=== PATIENT | male | born 1965 | race Caucasian/White ===

== ENCOUNTER 2019-10-10 01:12 | Day surgery (SDC) | payer BC, SELFPAY ==
[2019-10-08 09:09] VITALS: BMI 39.5
[2019-10-10 10:57] VITALS: BP 121/73; PULSE 58; RESP 20; TEMP 36.9; O2SAT 96
[2019-10-10] MEDS: LACTATED RINGERS 1,000 ML 150 ML IV CONT (11:09)
--- NOTE | 2019-10-10 12:05 | WPDANESEPPF ---
Anes - Initial Pre Proc Eval Procedure: Operation Date: 10/10/19 11:30 Proposed Procedures p Screening Colonoscopy - Kaiser Sims MD Date/Time: 10/10/19 12:05 Surgeon: Kaiser Sims MD Pre Op Diagnosis: Neoplasm Screening/ Personal Hx Colon Ca Patient Data Age: 54 Gender: M Height: 5 ft 8 in Weight: 119.5 kg Last Vital Signs Temp 36.9 C 10/10/19 10:57 Pulse 58 L 10/10/19 10:57 Resp 20 10/10/19 10:57 BP 121/73 10/10/19 10:57 Pulse Ox 96 10/10/19 10:57 Allergies Allergy/AdvReac Type Severity Reaction Status Date / Time adhesive tape AdvReac Unknown Redness of Verified 10/10/19 10:47 Skin bacitracin AdvReac Unknown EYE Verified 10/10/19 10:47 SWELLING Home Medications Medication Instructions Recorded Confirmed Type aspirin [Adult Low Dose Aspirin] 81 mg PO DAILY 06/17/19 10/10/19 History cetirizine [Zyrtec] 10 mg PO DAILY PRN 06/17/19 10/10/19 History hydrocodone-acetaminophen [Vicodin 3 tablet PO Q6H PRN 06/17/19 10/10/19 History HP] lisinopril 5 mg PO DAILY 06/17/19 10/10/19 History metoprolol succinate [Toprol XL] 25 mg PO QAM #30 tablet 06/18/19 10/10/19 Rx nitroglycerin [Nitrostat] 0.4 mg SUBLINGUAL DIRECTED PRN 06/18/19 10/10/19 Rx #25 tablet rosuvastatin 20 mg PO DAILY #30 tablet 06/18/19 10/10/19 Rx amlodipine 10 mg PO DAILY 10/08/19 10/10/19 History hydrochlorothiazide 25 mg PO DAILY 10/08/19 10/10/19 History Patient hx anesthesia problems: none Family hx anesthesia problems: none PMFSH Past Medical History Medical History Colon cancer Hypertension Kidney stone Pulmonary embolism 2007 Renal cell carcinoma Surgical History Surgical History History of colon resection 2006 History of partial nephrectomy January 2018 History of spinal fusion 2009 Family History Family History Father Acute myocardial infarction Social History Social History Smoking status: Never smoker Alcohol intake: current Substance use: never Additional occupation/education comments: Works as a [employer] Gender identity (if verbalized by the patient): Male Spiritual care concerns: No Agree to blood products: Yes Anes - Eval Final PreProcedure Day of Procedure 10/10/19 12:05 Patient weight: morbidly obese Heart: regular rate and rhythm Lungs: clear to auscultation Airway: Mallampati scale class II Neurological: alert and oriented Last oral intake: >/= 8 hours ASA classification: III Emergent: no Anesthetic plan: proceed Anesthesia type and monitoring: general GIVS and standard monitoring Informed Consent: The patient's anesthetic plan and its attendant risks and benefits were discussed with the patient/family/POA. Questions were solicited and answers provided to the satisfaction of the patient/family/POA.
--- NOTE | 2019-10-10 12:06 | P.HP_ITS ---
History of Present Illness History of Present Illness Consent: Risks, benefits, and alternatives have been discussed and questions answered. Patient agrees to proceed with procedure. Chief complaint: Neoplasm Screening/ Personal Hx Colon Ca Narrative: Ander Crump is a 54 year old W male With a history of sigmoid colon cancer diagnosed in 2006 and underwent a sigmoid resection. Patient did have chemotherapy was a T3 N0. Patient missed his last follow-up colonoscopy secondary other medical problems. [facility] Past Medical History Medical History Colon cancer Hypertension Kidney stone Pulmonary embolism 2008 Renal cell carcinoma Surgical History Surgical History History of colon resection 2006 History of partial nephrectomy January 2018 History of spinal fusion 2008 Family History Family History Father Acute myocardial infarction Social History Social History Smoking status: Never smoker Alcohol intake: current Substance use: never Additional occupation/education comments: Works as a [email or web address] Gender identity (if verbalized by the patient): Male Spiritual care concerns: No Agree to blood products: Yes Meds Home Medications and Allergies Home Medications Medication Instructions Recorded Confirmed Type aspirin [Adult Low Dose Aspirin] 81 mg PO DAILY 06/17/19 10/10/19 History cetirizine [Zyrtec] 10 mg PO DAILY PRN 06/17/19 10/10/19 History hydrocodone-acetaminophen [Vicodin 3 tablet PO Q6H PRN 06/17/19 10/10/19 History HP] lisinopril 5 mg PO DAILY 06/17/19 10/10/19 History metoprolol succinate [Toprol XL] 25 mg PO QAM #30 tablet 06/18/19 10/10/19 Rx nitroglycerin [Nitrostat] 0.4 mg SUBLINGUAL DIRECTED PRN 06/18/19 10/10/19 Rx #25 tablet rosuvastatin 20 mg PO DAILY #30 tablet 06/18/19 10/10/19 Rx amlodipine 10 mg PO DAILY 10/08/19 10/10/19 History hydrochlorothiazide 25 mg PO DAILY 10/08/19 10/10/19 History Allergies Allergy/AdvReac Type Severity Reaction Status Date / Time adhesive tape AdvReac Unknown Redness of Verified 10/10/19 10:47 Skin bacitracin AdvReac Unknown EYE Verified 10/10/19 10:47 SWELLING Vital Signs Vital Signs - 24 hr 10/10/19 10:57 Temperature 36.9 C Pulse Rate 58 L Respiratory Rate 20 Blood Pressure 121/73 Pulse Oximetry 96 Exam Const: Orientation/consciousness: patient oriented x3 Resp: Auscultation: clear to auscultation bilaterally Cardio: Rate: regular rate Rhythm: regular rhythm Heart sounds: no m urmurs GI: GI Palp: Yes Soft to palpation, No Tenderness to palpation present (GI), Yes No hepatosplenomegaly present and No Palpable mass present Auscultation: normal bowel sounds Neuro: General: patient oriented x3 and no focal motor deficits Extrem: General: no pedal edema Assessment and Plan Additional Plan screening colonoscopy secondary to a personal history of colon cancer
--- NOTE | 2019-10-10 12:56 | SUR.OPER ---
RESOLUTION CLIP PLACED X1 LOT [id number] EXP
[2019-10-10 12:58] VITALS: BP 115/60; PULSE 67; RESP 21; O2SAT 93
[2019-10-10 13:08] VITALS: BP 111/72; PULSE 61; RESP 14; O2SAT 97
[2019-10-10 13:18] VITALS: BP 109/72; PULSE 61; RESP 17; O2SAT 95
== END 2019-10-10 13:46 | disposition home or self-care (01) ==
PROVIDERS: PCP Internal Medicine; Visit Provider Internal Medicine Gastroenterology
PROC: 0DJD8ZZ Inspection of Lower Intestinal Tract, Via Natural or Artificial Opening Endoscopic (ICD-10-PCS; CPT 45378; principal; 2019-10-10 11:30)
DX: Z12.11 Encounter for screening for malignant neoplasm of colon (principal); D12.4 Benign neoplasm of descending colon; K64.1 Second degree hemorrhoids; K64.4 Residual hemorrhoidal skin tags; Z85.038 Personal history of other malignant neoplasm of large intestine; I10 Essential (primary) hypertension; Z85.528 Personal history of other malignant neoplasm of kidney; Z86.711 Personal history of pulmonary embolism; Z79.82 Long term (current) use of aspirin; Z90.49 Acquired absence of other specified parts of digestive tract; Z90.5 Acquired absence of kidney; Z98.1 Arthrodesis status; E66.01 Morbid (severe) obesity due to excess calories; Z68.41 Body mass index [BMI] 40.0-44.9, adult
CPT/HCPCS: 45385; 88305; J2001; J2704; J7120

== ENCOUNTER 2021-06-29 15:23 | Emergency (ER) | payer BC, SELFPAY ==
[2021-06-29 15:39] VITALS: BP 145/89; PULSE 89; RESP 16; TEMP 37.1; O2SAT 98
--- NOTE | 2021-06-29 17:22 | ED.URI ---
HPI - URI/Sore Throat General Chief Complaint: Upper Respiratory Infection Stated Complaint: sore throat Time Seen by Provider: 06/29/21 17:07 Source: patient and RN notes reviewed Mode of arrival: ambulatory Limitations: no limitations History of Present Illness HPI Narrative: Patient presents today complaining of 2-day history of sore throat and cough. Denies any additional symptoms to include fever, congestion, rhinorrhea, ear pain, headache. He has tried no medication for symptoms prior to arrival. He cannot currently take NSAIDs due to an impending back surgery on 13 July. MD elicited complaint: sore throat Related Data Home Medications Medication Instructions Recorded Confirmed aspirin [Adult Low Dose Aspirin] 81 mg PO DAILY 06/17/19 06/29/21 cetirizine [Zyrtec] 10 mg PO DAILY PRN 06/17/19 06/29/21 hydrocodone-acetaminophen [Vicodin 3 tablet PO Q6H PRN 06/17/19 06/29/21 HP] lisinopril 5 mg PO DAILY 06/17/19 06/29/21 amlodipine 10 mg PO DAILY 10/08/19 06/29/21 hydrochlorothiazide 25 mg PO DAILY 10/08/19 06/29/21 cyclobenzaprine 10 mg PO DAILY 06/29/21 06/29/21 ezetimibe 10 mg PO DAILY 06/29/21 06/29/21 Allergies Allergy/AdvReac Type Severity Reaction Status Date / Time adhesive tape AdvReac Unknown Redness of Verified 06/29/21 16:59 Skin bacitracin AdvReac Unknown EYE Verified 06/29/21 16:59 SWELLING Review of Systems Review of Systems: CONSTITUTIONAL: Denies body aches, fever, chills, or sweats. EYES: Denies visual changes, redness, or discharge. ENT: Denies rhinorrhea, congestion, or otalgia.+ Sore throat CARDIOVASCULAR: Denies chest pain, palpitations, or edema. RESPIRATORY: Denies dyspnea.+ Cough GASTROINTESTINAL: Denies abdominal pain, nausea, vomiting, or diarrhea. GENITOURINARY: Denies dysuria or hematuria. SKIN: Denies rash, itching, or wounds. MUSCULOSKELETAL: Denies back pain, joint pain, or myalgia. NEUROLOGIC: Denies headache, numbness, tingling, or weakness. PSYCH: Denies depression or anxiety. [facility] Past Medical History Medical History (Updated 06/29/21 @ 17:29 by Tanna Perez, [facility], ) Colon cancer Hypertension Kidney stone Pulmonary embolism 2007 Renal cell carcinoma Surgical History Surgical History History of colon resection 2006 History of partial nephrectomy January 2018 History of spinal fusion 2008 Family History Family History Father Acute myocardial infarction Social History Social History Smoking status: Never smoker Alcohol intake: current Alcohol use details: Rare. Less than 3 per year Substance use: never Additional occupation/education comments: Works as a [employer] Gender identity (if verbalized by the patient): Male Spiritual care concerns: No Agree to blood products: Yes Comments At time of signature, I have reviewed and agree with nursing past medical, surgical, social and family history unless otherwise noted. Please see nursing chart for further information. There is no relevant family history pertinent to the presenting complaint Exam Narrative: GENERAL: Well-appearing, well-nourished, and in no acute distress. HEAD: Normocephalic, atraumatic. EYES: EOMI. No redness or drainage. Conjunctivae normal. ENT: Mucous membranes pink and moist. Nares clear. No rhinorrhea. TMs normal bilaterally. Throat erythematous without edema or exudate. Uvula midline. NECK: Normal AROM. Supple. Right posterior cervical chain lymphadenopathy. CHEST: No respiratory distress. Clear to auscultation. HEART: Regular rate and rhythm. No murmur appreciated. Normal peripheral pulses. EXTREMITIES: Normal range of motion. No edema. SKIN: Warm, dry, no rash. Capillary refill normal. Normal skin turgor. NEURO: No focal deficits. Alert and oriented x
== END 2021-06-29 17:40 | disposition home or self-care (01) ==
PROVIDERS: Emergency Provider Nurse Practitioner; PCP Internal Medicine
DX: J02.8 Acute pharyngitis due to other specified organisms (principal); I10 Essential (primary) hypertension; Z86.711 Personal history of pulmonary embolism; Z85.038 Personal history of other malignant neoplasm of large intestine; Z85.528 Personal history of other malignant neoplasm of kidney
CPT/HCPCS: 87081; 87880; 99213; G0463

== ENCOUNTER 2021-09-29 11:59 | Emergency (ER) | payer BC, SELFPAY ==
--- NOTE | ~2021-09-29 | CT_ITS ---
EXAMINATION: CT abdomen pelvis wo con DATE: 09/29/2021 14:03 INDICATION: Right flank pain. Kidney stones. TECHNIQUE: Computed tomography (CT) of the abdomen and pelvis was performed without intravenous contr ast. Automated exposure control and iterative reconstruction technique were employed. The dose-length product was 844.44 mGy-cm. COMPARISON: CT abdomen 03/20/2007, chest CT 10/04/14 FINDINGS: The visualized portions of the lung bases demonstrate mild atelectasis. There are patchy gr ound glass opacities in right lower lobe. No pleural effusion. The heart size is normal. No pericardi al effusion. The liver, gallbladder, spleen, pancreas, and adrenal glands are normal. There is an 18 mm stone or cluster of stones in right kidney. There is mild right hydronephrosis and hydroureter. Th ere is a 4 mm stone at right ureterovesicular junction. There are 3 stones in left kidney measuring u p to 4 mm. There is a parenchymal calcification in left kidney. There is a hemorrhagic cyst in left k idney measuring 1.7 cm. Peripheral high density of the left kidney may be changes of partial nephrect perry. There is an anastomosis in the sigmoid colon. There are no dilated loops of bowel. The appendix is normal. There are two supraumbilical ventral hernias containing fat. There are changes of anterior and posterior fusion procedures at L5-S1. There is moderate lumbar spondylosis and mild thoracic spo ndylosis. IMPRESSION: 1. 4 mm stone at right ureterovesicular junction with mild right hydronephrosis and hydroureter. 2. Bilateral nonobstructing kidney stones. 3. Mild patchy ground glass opacities in right lung lower lobe suspicious for pneumonia such as COVID -19 pneumonia. Reviewed, dictated and finalized at location A. USION PROCESS OPERATOR IMPRESSION: 1. 4 mm stone at right ureterovesicular junction with mild right hydronephrosis and hydroureter. 2. Bilateral nonobstructing kidney stones. 3. Mild patchy ground glass opacities in right lung lower lobe suspicious for p neumonia such as COVID-19 pneumonia.
[2021-09-29 12:05] VITALS: BP 148/86; PULSE 78; RESP 16; TEMP 36.8; O2SAT 97
--- NOTE | 2021-09-29 13:53 | ED.MALEGU ---
HPI - Male Genitourinary General Chief complaint: Urogenital-Male <Renay Sherman PA-C - Last Filed: 09/29/21 15:17> Stated complaint: right flank <Renay Sherman PA-C - Last Filed: 09/29/21 15:17> Time Seen by Provider: 09/29/21 13:34 <Renay Sherman PA-C - Last Filed: 09/29/21 15:17> Source: patient <CAROLYN Bell Last Filed: 09/29/21 15:17> Mode of arrival: ambulatory <CAROLYN eBll Last Filed: 09/29/21 15:17> Limitations: no limitations <CAROLYN Bell Last Filed: 09/29/21 15:17> History of Present Illness HPI Narrative: This is a 56 year old male that presents to the ER for right flank pain present since yesterday. Reports he noted some blood in his urine. He has history of many kidney stones in the past. His urologist that he previously saw is retired. Denies fever, vomiting, or dysuria. <Renay Sherman PA-C - Last Filed: 09/29/21 15:17> Related Data Home medications: Home Medications Medication Instructions Recorded Confirmed aspirin [Adult Low Dose Aspirin] 81 mg PO DAILY 06/17/19 06/29/21 cetirizine [Zyrtec] 10 mg PO DAILY PRN 06/17/19 06/29/21 hydrocodone-acetaminophen [Vicodin 3 tablet PO Q6H PRN 06/17/19 06/29/21 HP] lisinopril 5 mg PO DAILY 06/17/19 06/29/21 amlodipine 10 mg PO DAILY 10/08/19 06/29/21 hydrochlorothiazide 25 mg PO DAILY 10/08/19 06/29/21 cyclobenzaprine 10 mg PO DAILY 06/29/21 06/29/21 ezetimibe 10 mg PO DAILY 06/29/21 06/29/21 <CAROLYN Bell Last Filed: 09/29/21 15:17> Allergies/Adverse reactions: Allergies Allergy/AdvReac Type Severity Reaction Status Date / Time adhesive tape AdvReac Unknown Redness of Verified 09/29/21 14:20 Skin bacitracin AdvReac Unknown EYE Verified 09/29/21 14:20 SWELLING <Renay Sherman PA-C - Last Filed: 09/29/21 15:17> Review of Systems Review of Systems: CONSTITUTIONAL: Denies fever GASTROINTESTINAL: Reports abdominal pain. Denies nausea, vomiting GENITOURINARY: Reports hematuria. Denies dysuria <Renay Sherman PA-C - Last Filed: 09/29/21 15:17> All systems reviewed & are unremarkable except as noted in HPI and below <Renay Sherman PA-C - Last Filed: 09/29/21 15:17> PMFSH Past Medical History Medical History: Medical History (Updated 09/29/21 @ 15:14 by Renay Sherman PA-C) Colon cancer Hypertension Kidney stone Pulmonary embolism 2007 Renal cell carcinoma <Renay Sherman PA-C - Last Filed: 09/29/21 15:17> Surgical History Surgical History: Surgical History History of colon resection 2006 History of partial nephrectomy January 2018 History of spinal fusion 2008 <Renay Sherman PA-C - Last Filed: 09/29/21 15:17> Family History Family History: Family History Father Acute myocardial infarction <Renay Sherman PA-C - Last Filed: 09/29/21 15:17> Social History Social History: Social History Smoking status: Never smoker Alcohol intake: current Alcohol use details: Rare. Less than 3 per year Substance use: never Additional occupation/education comments: Works as a [employer] Gender identity (if verbalized by the patient): Male Spiritual care concerns: No Agree to blood products: Yes <Renay Sherman PA-C - Last Filed: 09/29/21 15:17> Exam Narrative: GENERAL: Well-appearing, well-nourished, and in no acute distress. HEAD: Normocephalic, atraumatic. EYES: EOMI. CHEST: Clear to auscultation. No respiratory distress. No wheezes rales or rhonchi HEART: Regular rate and rhythm. No murmur heard. Normal peripheral pulses. ABDOMEN: Soft, nontender, nondistended, normal active bowel sounds. No CVA tenderness EXTREMITIES: Normal range of motion. No edema. SKIN: Warm, dry, no rash. NEURO: N
[2021-09-29 14:17] LABS: Basophils Percent Auto 0.3 % (0.2-1.2); Eosinophils Absolute Auto 0.2 K/mm3 (0-0.3); Eosinophils Percent Auto 2.4 % (0-4.4); Hematocrit 41.9 % (42.0-52.0); Hemoglobin 14.2 g/dL (14.0-18.0); Immature Granulocyte Absolute 0.04 K/mm3 (0.00-0.031); Immature Granulocyte Percent A 0.5 % (0-0.5); Lymphocytes Absolute Auto 1.39 K/mm3 (0.9-3.2); Lymphocytes Percent Auto 18.2 % (18.3-44.2); Mean Corpuscular HGB Conc 33.9 g/dl (32-36); Mean Corpuscular Hemoglobin 31.3 pg (26-34); Mean Corpuscular Volume 92.5 fl (80-100); Monocytes Absolute Auto 0.6 K/mm3 (0.1-0.6); Monocytes Percent Auto 7.7 % (2.6-8.5); Neutrophils Absolute Auto 5.4 K/mm3 (1.3-6.7); Neutrophils Percent Auto 70.9 % (45.5-73.1); Platelet Count Result 231 k/mm3 (150-375); Red Blood Count 4.53 M/mm3 (4.6-6.20); Red Cell Distribution Width 13.2 % (11.5-14.5); White Blood Count 7.6 K/mm3 (4.5-10.0)
[2021-09-29 14:24] LABS: Add Urine Microscopic? YES; Appearance Urine Clear (Clear); Bilirubin Urine Negative (Negative); Blood Urine 3+ (Negative); Color Urine Yellow (Yellow); Glucose Urine UA Negative (Negative); Ketones Urine Negative (Negative); Leukocyte Esterase Ur Negative LEU/UL (Negative); Mucus Urine Rare /lpf; Nitrate Urine Negative (Negative); Protein Urine Negative (Negative); RBC Urine 51-75 /hpf (0-2); Specific Grav Ur 1.014 (1.001-1.035); Squamous Epithelial Cell Urine Rare /hpf (Few); Urobilinogen Urine Negative mg/dL (<2.0)
[2021-09-29 14:33] LABS: Alanine Aminotransferase 36 U/L (4-50); Albumin Level 4.2 g/dL (3.5-5.1); Alkaline Phosphatase 80 U/L (38-126); Anion Gap 9 mmol/L (8-16); Aspartate Amino Transferase 32 U/L (17-59); Bilirubin,Total 0.5 mg/dL (0.2-1.3); Blood Urea Nitrogen 15 mg/dL (9-20); Calcium 9.3 mg/dL (8.4-10.2); Carbon Dioxide 23 mmol/L (22-30); Chloride 103 mmol/L (98-107); Estimated CRCL calculation 80 ml/min; Estimated Glomerular Filt Rate > 60; Glucose 114 mg/dL (65-110); Lipase 574 U/L (23-300); Potassium 3.8 mmol/L (3.4-5.0); Sodium 135 mmol/L (137-145)
[2021-09-29 16:00] VITALS: BP 130/85; PULSE 61; RESP 16
== END 2021-09-29 16:00 | disposition home or self-care (01) ==
PROVIDERS: Physician Assistant; Emergency Provider Emergency Medicine; PCP Internal Medicine
DX: N20.1 Calculus of ureter (principal)
CPT/HCPCS: 36415; 74176; 80053; 81001; 83690; 85025; 99284

== ENCOUNTER 2022-10-10 14:51 | Emergency (ER) | payer BC, SELFPAY ==
[2022-10-10] VITALS (39 sets, daily range): BP systolic 118–143; BP diastolic 61–94; PULSE 77–93; RESP 11–23; TEMP 36.6–36.9; O2SAT 91–97
--- NOTE | ~2022-10-10 | US_ITS ---
EXAMINATION:US venous doppler LE RT INDICATION:Right leg pain and swelling. Postop. TECHNIQUE: Multiple grayscale, color flow and Doppler images of the right lower extremity deep venous systems were obtained and reviewed. COMPARISON:No prior studies for comparison. FINDINGS: There is extensive deep venous thrombosis of the right femoral, popliteal, posterior tibial , peroneal and gastrocnemius veins. IMPRESSION: 1: Extensive deep venous thrombosis of the right lower extremity veins. Reviewed, dictated and finalized at location B. OPERATOR
--- NOTE | ~2022-10-10 | CT_ITS ---
EXAMINATION: CTA chest PE protocol DATE: 10/10/2022 17:47 INDICATION: extensive RLE DVT, hx PE TECHNIQUE: Computed tomography angiography (CTA) of the chest was performed with 100 mL Omnipaque-350 intravenous contrast timed to evaluate the pulmonary arteries. Coronal maximum intensity projection 3D-reconstructions were created by the technologist. The dose-length product (DLP) was 937.01 mGy-cm. Automated exposure control and iterative reconstruction technique were employed. COMPARISON: 10/04/2014. FINDINGS: Lung parenchyma and airways: Clear. Pleura: Unremarkable. Thoracic inlet, axillae and chest wall: Unremarkable. Thoracic aorta: Mild arch calcification. Mediastinum: Normal. Heart and pericardium: Normal. The RV/LV ratio is 1.0, however there is bowing of the interventricula r septum. Coronary artery calcifications: Mild. Upper abdomen: Dilated gallbladder. Ill-defined hyperenhancement in the left lower lobe. Bones: No acute osseous finding. Pulmonary arteries: Study quality: Adequate. Saddle embolus bridging the left and right main pulmonar y arteries. Multiple occlusive and nonocclusive segmental and subsegmental emboli present in all lobe s. IMPRESSION: Multiple pulmonary emboli including a saddle embolus in the main pulmonary arteries, large clot burde n, and evidence of early right heart strain. Gallbladder hydrops. Indeterminate left liver lobe lesio n, recommend nonemergent, outpatient MR the liver for further characterization. Results reported telephonically to Renay Sherman PA-C by Dr. Weinstein at 6:10 PM on 10/10/2022. Reviewed, dictated and finalized at location K. SURY ACCOUNTANT IMPRESSION: Multiple pulmonary emboli including a saddle embolus in the main pulmonary jillian sage, large clot burden, and evidence of early right heart strain. Gallbladder hydrops. Indeterminate left liver lobe lesion, recommend nonemergent, outpatien t MR the liver for further characterization. Results reported telephonically to Renay Sherman PA-C by Dr. Weinstein at 6:10 PM on 10/10/2022.
--- NOTE | 2022-10-10 15:17 | PC.NURSE ---
Pt in ultrasound.
--- NOTE | 2022-10-10 16:04 | ED.EXTPRO ---
HPI - Extremity Problem General Chief complaint: Extremity Problem,Nontraumatic <Renay Sherman PA-C - Last Filed: 10/10/22 20:57> Stated complaint: right leg swelling <Renay Sherman PA-C - Last Filed: 10/10/22 20:57> Time Seen by Provider: 10/10/22 15:18 <Renay Sherman PA-C - Last Filed: 10/10/22 20:57> Source: patient <CAROLYN Bell Last Filed: 10/10/22 20:57> Mode of arrival: ambulatory <CAROLYN Bell Last Filed: 10/10/22 20:57> Limitations: no limitations <CAROLYN Bell Last Filed: 10/10/22 20:57> History of Present Illness HPI Narrative: This is a 57-year-old male that presents to the emergency department for right lower extremity swelling noted since yesterday. Patient recently had a lumbar spine fusion about a month ago. He had a follow-up appointment with a nerve conduction study and the doctor noted that his leg was swollen and recommended he be seen in the ER to rule out a DVT. Patient denies any chest pain or shortness of breath. <Renay Sherman PA-C - Last Filed: 10/10/22 20:57> Related Data Home medications: Home Medications Medication Instructions Recorded Confirmed aspirin 81 mg tablet,delayed 81 mg PO DAILY 06/17/19 06/29/21 release (Adult Low Dose Aspirin) cetirizine 10 mg tablet (Zyrtec) 10 mg PO DAILY PRN Allergy Symptoms 06/17/19 06/29/21 hydrocodone 10 mg-acetaminophen 3 tablet PO Q6H PRN Pain 06/17/19 06/29/21 300 mg tablet (Vicodin HP) lisinopril 5 mg tablet 5 mg PO DAILY 06/17/19 06/29/21 amlodipine 10 mg tablet 10 mg PO DAILY 10/08/19 06/29/21 hydrochlorothiazide 25 mg tablet 25 mg PO DAILY 10/08/19 06/29/21 cyclobenzaprine 10 mg tablet 10 mg PO DAILY 06/29/21 06/29/21 ezetimibe 10 mg tablet 10 mg PO DAILY 06/29/21 06/29/21 <Renay Sherman PA-C - Last Filed: 10/10/22 20:57> Allergies/Adverse reactions: Allergies Allergy/AdvReac Type Severity Reaction Status Date / Time adhesive tape AdvReac Unknown Redness of Verified 10/10/22 15:39 Skin bacitracin AdvReac Unknown EYE Verified 10/10/22 15:39 SWELLING <Renay Sherman PA-C - Last Filed: 10/10/22 20:57> Review of Systems Review of Systems: CONSTITUTIONAL: Denies fever CARDIOVASCULAR: Reports edema. Denies chest pain RESPIRATORY: Denies dyspnea. SKIN: Denies rash MUSCULOSKELETAL: Reports back pain, joint pain, and myalgia. <Renay Sherman PA-C - Last Filed: 10/10/22 20:57> All systems reviewed & are unremarkable except as noted in HPI and below <Renay Sherman PA-C - Last Filed: 10/10/22 20:57> [facility] Past Medical History Medical History: Medical History (Updated 10/10/22 @ 18:38 by Renay Sherman PA-C) Colon cancer Hypertension Kidney stone Pulmonary embolism 2007 Renal cell carcinoma <Renay Sherman PA-C - Last Filed: 10/10/22 20:57> Surgical History Surgical History: Surgical History History of colon resection 2006 History of partial nephrectomy January 2018 History of spinal fusion 2008 <Renay Sherman PA-C - Last Filed: 10/10/22 20:57> Family History Family History: Family History Father Acute myocardial infarction <Renay Sherman PA-C - Last Filed: 10/10/22 20:57> Social History Social History: Social History Smoking status: Never smoker Alcohol intake: current Alcohol use details: Rare. Less than 3 per year Substance use: never Living arrangements: with family Occupation/Education: occupation Additional occupation/education comments: Works as a [employer] Gender identity (if verbalized by the patient): Male Spiritual care concerns: No Agree to blood products: Yes <Renay Sherman PA-C - Last Filed: 10/10/22 20:57> Exam Narrative: GENERAL: Well-appearing,
[2022-10-10 16:47] LABS: Basophils Percent Auto 0.5 % (0.2-1.2); Eosinophils Absolute Auto 0.2 K/mm3 (0-0.3); Eosinophils Percent Auto 3.6 % (0-4.4); Hematocrit 38.2 % (42.0-52.0); Hemoglobin 13.2 g/dL (14.0-18.0); Immature Granulocyte Absolute 0.03 K/mm3 (0.00-0.031); Immature Granulocyte Percent A 0.5 % (0-0.5); Lymphocytes Percent Auto 30.7 % (18.3-44.2); Mean Corpuscular HGB Conc 34.6 g/dl (32-36); Mean Corpuscular Hemoglobin 31.1 pg (26-34); Mean Corpuscular Volume 90.1 fl (80-100); Mean Platelet Volume 8.5 fl (7.4-10.4); Monocytes Absolute Auto 0.5 K/mm3 (0.1-0.6); Monocytes Percent Auto 8.4 % (2.6-8.5); Neutrophils Absolute Auto 3.5 K/mm3 (1.3-6.7); Neutrophils Percent Auto 56.3 % (45.5-73.1); Platelet Count Result 232 k/mm3 (150-375); Red Blood Count 4.24 M/mm3 (4.6-6.20); Red Cell Distribution Width 12.9 % (11.5-14.5); White Blood Count 6.2 K/mm3 (4.5-10.0)
[2022-10-10 17:05] LABS: Anion Gap 6 mmol/L (8-16); Blood Urea Nitrogen 17 mg/dL (9-20); Calcium 8.8 mg/dL (8.4-10.2); Carbon Dioxide 31 mmol/L (22-30); Chloride 98 mmol/L (98-107); Estimated CRCL calculation 81 ml/min; Estimated Glomerular Filt Rate > 60; Glucose 111 mg/dL (65-110); Potassium 3.1 mmol/L (3.4-5.0); Prothrombin Time 13.1 Seconds (11.1-14.7); Sodium 135 mmol/L (137-145)
[2022-10-10] MEDS: POTASSIUM CHLORIDE 20 MEQ PACKET (FOR LIQUID) 40 MEQ PO (17:18)
--- NOTE | 2022-10-10 18:31 | PC.NURSE ---
Spoke with pharmacy and MARISA Niño. Pharmacist Juan Francisco confirmed we will be giving a 7000 unit bolus based on weight. Juan Francisco to D/C the order for 9500 units.
[2022-10-10] MEDS: HEPARIN SODIUM 5,000 UNITS/ML VIAL 7000 UNITS IV PUSH (19:03)
[2022-10-10] MEDS: HEPARIN SOD/D5W 100 UNITS/ML 25,000 UNITS/250 ML BAG 15 UNITS IV CONT (19:03)
--- NOTE | 2022-10-10 19:08 | PC.NURSE ---
Pt started on heparin drip.
[2022-10-10] MEDS: ONDANSETRON INJ 4 MG/2 ML VIAL IV PUSH (20:22)
[2022-10-10] MEDS: MORPHINE SULFATE (*CRX) 4 MG/ML INJ IV PUSH (20:22)
--- NOTE | 2022-10-10 20:55 | ECG_ITS ---
Measurements Intervals [place] Rate: 88 P: 29 NM: 167 QRS: 3 QRSD: 103 T: 6 QT: 366 QTc: 444 Interpretive Statements SINUS RHYTHM COMPARED TO ECG 06/17/2019 10:04:03 SINUS RHYTHM NOW PRESENT Electronically Signed On 10-11-2022 11:34:42 COREMAKING SUPERVISOR by Candy Cortez M.D.
--- NOTE | 2022-10-10 21:36 | PC.NURSE ---
Spoke with Sebastian from [facility] Transfer team, gave update on patient. COVID/FLU swab requested. Will call Sebastian with results of lab work. No beds at this time. Call back number [phone]
[2022-10-10 22:28] LABS: Magnesium 1.8 mg/dL (1.6-2.3)
[2022-10-10 22:41] LABS: NT Pro B Type Natriuretic Pept 195 pg/mL (19.9-100); Troponin I < 0.012 ng/mL (0.000-0.034)
[2022-10-10 22:56] LABS: Influenza A QL RT-PCR Negative (Negative); Influenza B QL RT-PCR Negative (Negative); SARS-CoV-2 RNA PCR Negative
--- NOTE | 2022-10-10 23:01 | PC.NURSE ---
Spoke with Sebastian from [facility] Transfer center. Informed of negative COVID and flu results, as well as new lab results.
[2022-10-11] VITALS (11 sets, daily range): BP systolic 111–136; BP diastolic 65–83; PULSE 72–94; RESP 16–22; O2SAT 94–98
[2022-10-11 03:52] LABS: Partial Thromboplastin Time 55.8 SECONDS (22.3-36.8)
[2022-10-11] MEDS: HEPARIN SODIUM 5,000 UNITS/ML VIAL 3500 UNITS IV PUSH (04:08)
[2022-10-11] MEDS: HYDROcodone/acetaminophen (*CRX) 5-325 MG TABLET 1 TAB PO (04:16)
--- NOTE | 2022-10-11 06:40 | PC.NURSE ---
0558: [id number] Called [facility] for ALS transport to [facility]...ETA [id number] (#[id number])
[2022-10-11 07:52] LABS: Basophils Percent Auto 0.3 % (0.2-1.2); Eosinophils Absolute Auto 0.3 K/mm3 (0-0.3); Eosinophils Percent Auto 4.1 % (0-4.4); Hematocrit 35.8 % (42.0-52.0); Hemoglobin 12.3 g/dL (14.0-18.0); Immature Granulocyte Absolute 0.03 K/mm3 (0.00-0.031); Immature Granulocyte Percent A 0.5 % (0-0.5); Lymphocytes Percent Auto 31.5 % (18.3-44.2); Mean Corpuscular HGB Conc 34.4 g/dl (32-36); Mean Corpuscular Volume 90.2 fl (80-100); Mean Platelet Volume 8.4 fl (7.4-10.4); Monocytes Absolute Auto 0.6 K/mm3 (0.1-0.6); Monocytes Percent Auto 9.8 % (2.6-8.5); Neutrophils Absolute Auto 3.4 K/mm3 (1.3-6.7); Neutrophils Percent Auto 53.8 % (45.5-73.1); Platelet Count Result 205 k/mm3 (150-375); Red Blood Count 3.97 M/mm3 (4.6-6.20); Red Cell Distribution Width 12.8 % (11.5-14.5); White Blood Count 6.4 K/mm3 (4.5-10.0)
[2022-10-11 10:20] LABS: Partial Thromboplastin Time 69.5 SECONDS (22.3-36.8)
--- NOTE | 2022-10-11 10:35 | PC.NURSE ---
PTT result called to [facility].
== END 2022-10-11 10:08 | disposition short-term general hospital (02) ==
PROVIDERS: General Practice; Emergency Provider Physician Assistant; PCP Internal Medicine
DX: I26.94 Multiple subsegmental thrombotic pulmonary emboli without acute cor pulmonale (principal); I82.401 Acute embolism and thrombosis of unspecified deep veins of right lower extremity; K76.9 Liver disease, unspecified; Z20.822 Contact with and (suspected) exposure to COVID-19; I10 Essential (primary) hypertension; Z87.442 Personal history of urinary calculi; Z85.038 Personal history of other malignant neoplasm of large intestine
CPT/HCPCS: 36415; 71275; 80048; 83735; 83880; 84484; 85025; 85610; 85730; 87636; 93005; 93971; 96365; 96366; 96367; 96375; 99291; A9270; J0131; J1644; J2270; J2405; Q9967

== ENCOUNTER 2024-02-09 07:48 | Emergency (ER) | payer BC, SELFPAY ==
--- NOTE | ~2024-02-09 | CT_ITS ---
EXAMINATION: CT abdomen pelvis wo con DATE: 02/09/2024 09:31 INDICATION: Flank pain. Hematuria. TECHNIQUE: Computed tomography (CT) of the abdomen and pelvis was performed without intravenous contr ast. Automated exposure control and iterative reconstruction technique were employed. The dose-length product was 1514.29 mGy-cm. COMPARISON: CT abdomen and pelvis 09/29/2021 FINDINGS: The visualized portions of the lung bases are clear without pneumonia or pleural effusion. The heart size is normal. No pericardial effusion. The liver, gallbladder, spleen, pancreas, adrenal glands, and right kidney are normal. There are changes of partial left nephrectomy. There are 2 mm an d 4 mm stones in left kidney. There is a parenchymal calcification in left kidney. There is 19 mm sto ne in the bladder. The prostate is mildly enlarged. The appendix is normal. There are two supraumbili lucas ventral hernias containing fat. There are no pathologically enlarged lymph nodes. There is no guy e intraperitoneal fluid. There are changes of anterior and posterior fusion procedures from L4 to S1. There is moderate thoracic and lumbar spondylosis. IMPRESSION: 1. Nonobstructing left kidney stones. 2. Bladder stone. 3. Supraumbilical ventral hernias containing fat. Reviewed, dictated and finalized at location A.
[2024-02-09 07:53] VITALS: BP 151/76; PULSE 63; RESP 18; TEMP 36.4; O2SAT 97
[2024-02-09 08:19] LABS: Basophils Percent Auto 0.3 % (0.2-1.2); Eosinophils Absolute Auto 0.2 K/mm3 (0-0.3); Eosinophils Percent Auto 2.9 % (0-4.4); Hematocrit 44.3 % (42.0-52.0); Immature Granulocyte Absolute 0.02 K/mm3 (0.00-0.031); Immature Granulocyte Percent A 0.3 % (0-0.5); Lymphocytes Absolute Auto 1.72 K/mm3 (0.9-3.2); Lymphocytes Percent Auto 27.3 % (18.3-44.2); Mean Corpuscular HGB Conc 33.9 g/dl (32-36); Mean Corpuscular Hemoglobin 31.8 pg (26-34); Mean Corpuscular Volume 93.9 fl (80-100); Mean Platelet Volume 8.7 fl (7.4-10.4); Monocytes Absolute Auto 0.5 K/mm3 (0.1-0.6); Monocytes Percent Auto 7.1 % (2.6-8.5); Neutrophils Absolute Auto 3.9 K/mm3 (1.3-6.7); Neutrophils Percent Auto 62.1 % (45.5-73.1); Platelet Count Result 246 k/mm3 (150-375); Red Blood Count 4.72 M/mm3 (4.6-6.20); Red Cell Distribution Width 13.3 % (11.5-14.5); White Blood Count 6.3 K/mm3 (4.5-10.0)
[2024-02-09 08:31] LABS: Alanine Aminotransferase 34 U/L (6-50); Albumin Level 4.5 g/dL (3.5-5.1); Alkaline Phosphatase 76 U/L (38-126); Anion Gap 9 mmol/L (4-12); Aspartate Amino Transferase 34 U/L (17-59); Bilirubin,Total 0.5 mg/dL (0.2-1.3); Blood Urea Nitrogen 17 mg/dL (9-20); Carbon Dioxide 27 mmol/L (22-30); Chloride 104 mmol/L (98-107); Estimated CRCL calculation 69 ml/min; Estimated Glomerular Filt Rate 56; Glucose 112 mg/dL (65-110); Sodium 140 mmol/L (137-145)
[2024-02-09 08:55] LABS: Appearance Urine Clear (Clear); Bilirubin Urine Negative (Negative); Blood Urine 1+ (Negative); Color Urine Yellow (Yellow); Glucose Urine UA Negative (Negative); Ketones Urine Negative (Negative); Leukocyte Esterase Ur 1+ LEU/UL (Negative); Need Manual Microscopic Need Manual; Nitrate Urine Positive (Negative); Non Pathogenic Casts 0-2; Protein Urine Negative (Negative); Specific Grav Ur 1.021 (1.001-1.035); Squamous Epithelial Cell Urine None Seen /hpf (Few); Urobilinogen Urine 0.2 mg/dL (<2.0); WBC Urine 21-50 /hpf (0-3); pH Urine 5.5 (5.0-9.0)
[2024-02-09 09:04] LABS: Bacteria Urine Rare /hpf
[2024-02-09 09:06] LABS: Add Urine Microscopic? YES
--- NOTE | 2024-02-09 09:55 | ED.BACK ---
HPI - Back Pain/Injury General Chief Complaint: Back Pain/Injury Stated Complaint: lower back pain radiates to abd Time Seen by Provider: 02/09/24 09:09 History of Present Illness HPI Narrative: 59-year-old male present to the emergency department for evaluation of right flank pain. Patient does have a significant history of kidney stones and has passed approximately 54 kidney stones previously in a single year. Patient began having wall right flank pain that radiates around to his right groin and to his right hip. Patient also reports he has been working on the [employer] a lot and may have strained his hip. Related Data Home Medications Medication Instructions Recorded Confirmed aspirin 81 mg tablet,delayed 81 mg PO DAILY 06/17/19 06/29/21 release (Adult Low Dose Aspirin) cetirizine 10 mg tablet (Zyrtec) 10 mg PO DAILY PRN Allergy Symptoms 06/17/19 06/29/21 hydrocodone 10 mg-acetaminophen 3 tablet PO Q6H PRN Pain 06/17/19 06/29/21 300 mg tablet (Vicodin HP) lisinopril 5 mg tablet 5 mg PO DAILY 06/17/19 06/29/21 amlodipine 10 mg tablet 10 mg PO DAILY 10/08/19 06/29/21 hydrochlorothiazide 25 mg tablet 25 mg PO DAILY 10/08/19 06/29/21 cyclobenzaprine 10 mg tablet 10 mg PO DAILY 06/29/21 06/29/21 ezetimibe 10 mg tablet 10 mg PO DAILY 06/29/21 06/29/21 Allergies Allergy/AdvReac Type Severity Reaction Status Date / Time adhesive tape AdvReac Unknown Redness of Verified 02/09/24 07:53 Skin bacitracin AdvReac Unknown EYE Verified 02/09/24 07:53 SWELLING Review of Systems Review of Systems: All systems reviewed & are unremarkable except as noted in HPI and below PMFSH Past Medical History Medical History (Updated 02/09/24 @ 11:12 by Agustin Caban MD) Colon cancer Hypertension Kidney stone Pulmonary embolism 2007 Renal cell carcinoma Surgical History Surgical History History of colon resection 2006 History of partial nephrectomy January 2018 History of spinal fusion 2008 Family History Family History Father Acute myocardial infarction Social History Social History Smoking status: Never smoker Alcohol intake: current Alcohol use details: Rare. Less than 3 per year Substance use: never Living arrangements: with family Occupation/Education: occupation Additional occupation/education comments: Works as a [employer] Gender identity (if verbalized by the patient): Male Spiritual care concerns: No Agree to blood products: Yes Exam Narrative: APPEARANCE: Well appearing, no pain, no distress, well-nourished. HEAD: normocephalic, atraumatic. EYES: PERRLA/EOMI, conjunctivae clear. NOSE: Normal no drainage EARS:TMS clear with good light reflex. THROAT: Pharynx clear, no exudate. NECK: Supple. No adenopathy, no masses. RESPIRATORY: Airway patent, respirations nonlabored. Clear to auscultation bilaterally, no rales, rhonchi, wheezing. CARDIOVASCULAR: Regular rate and rhythm without murmurs rubs or gallops. ABDOMINAL: Soft, nontender, nondistended, normal bowel sounds MUSCULOSKELETAL: Right buttock tenderness to palpation NEURO: Alert. Cranial nerves II through XII intact. Grossly intact SKIN: Warm, dry. Normal Color Course Course Emergency Course: Patient was treated for both urinary tract infection and for sciatica. Patient was encouraged of close follow-up with Urology for his bladder stone. Vital Signs Vital signs: Vital Signs Temperature 97.5 F L 02/09/24 07:53 Pulse Rate 63 02/09/24 07:53 Respiratory Rate 18 02/09/24 07:53 Blood Pressure 151/76 H 02/09/24 07:53 Pulse Oximetry 97 02/09/24 07:53 Temperature 97.5 F L 02/09/24 07:53 Pulse Rate 65 02/09/24 11:34 Respiratory Rate 16 02/09/24 11:34 Blood Pressure 152/69 H 02/09/24 11:34 Pulse Oximetry 99
[2024-02-09] MEDS: HYDROmorphone HCL INJ (*CRX) 1 MG/ML SYR IV PUSH (10:01)
[2024-02-09] MEDS: HYDROcodone/acetaminophen (*CRX) 5-325 MG TABLET 1 TAB PO (11:00)
[2024-02-09] MEDS: CYCLOBENZAPRINE HCL 10 MG TABLET PO (11:00)
[2024-02-09 11:34] VITALS: BP 152/69; PULSE 65; RESP 16; O2SAT 99
== END 2024-02-09 11:40 | disposition home or self-care (01) ==
PROVIDERS: Emergency Provider Emergency Medicine; PCP Internal Medicine
DX: R10.9 Unspecified abdominal pain (principal); M54.41 Lumbago with sciatica, right side; N39.0 Urinary tract infection, site not specified; N21.0 Calculus in bladder; K43.9 Ventral hernia without obstruction or gangrene; Z85.038 Personal history of other malignant neoplasm of large intestine; I10 Essential (primary) hypertension; Z87.442 Personal history of urinary calculi; Z86.711 Personal history of pulmonary embolism; Z79.82 Long term (current) use of aspirin; Z85.528 Personal history of other malignant neoplasm of kidney
CPT/HCPCS: 36415; 74176; 80053; 81001; 85025; 87086; 87088; 96365; 96375; 99284; A9270; J0696; J1170

== ENCOUNTER 2025-06-24 13:16 | Outpatient (CLI) | payer BC, SELFPAY ==
--- NOTE | ~2025-06-24 | XR_ITS ---
Abdominal radiograph(s) INDICATION: Kidney stones COMPARISON: CT abdomen and pelvis 02/09/2024 TECHNIQUE: 2 view supine AP abdomen FINDINGS: Small stone left kidney. Lung bases clear. Scattered colonic stool. Small bowel loops not well seen. No evidence of organomegaly. No acute bony abnormality. Lower spinal orthopedic hardware and stimulator. IMPRESSION: 1. Small stone left kidney. Reviewed, dictated and finalized at location [facility] IMPRESSION: 1. Small stone left kidney.
--- OUTSIDE RECORDS SUMMARY | 2025-06-24 13:24 | XMS_ITS | Encounter Summary ---
Author Organization [facility] Address [address] [place] [id number] Care Team Providers Care Health Information Manager Name Role Phone Joya Bernal MD Unavailable [phone] Michael Wright MD Unavailable [phone] Faraz Castro MD Primary Care Provider [phone] Encounter Details Date Type Department Care Team (Late st Contact Info) Description 05/16/2024 Prep for Procedure [facility]-Ad[facility] [place], [place] [id number] Dorota Mobley MD [address] [facility] [address] [place] [address] Social History Tobacco Use Types Packs/Day Years Used Date Smoking Tobacco: Never Smokeless Tobacco: Never Alcohol Use Standard Drinks/Week Comments Not Currently 0 (1 standard drink = 0.6 oz pur e alcohol) Sex and Gender Information Value Date Recorded Sex Assigned at Not on file Legal Sex Male 1:42 PM CDT Gender Identity Not on file Sexual Orientation Not on file documented as of this encounter Functional Status * Calculated C-SSRS Risk Score (Lifetime/Recent) Answer Date of Assessment Author Status No Risk Indicated 05/16/2024 11:22 AM CDT Rojas Verdin RN Active * Butler Suicide Severity Rating Scale (Screener/Recent Self-Report) Question Answer Date of Assessment Author Status 1. Wish to be (Past 1 Month) No 05/16/2024 11:22 AM CDT Alice Verdin RN Active 2. Non-Specific Active Suicidal Thoughts (Past 1 Month) No 05/16/2024 11:22 AM CDT Alice Verdin RN Active 6. Suicidal Behavior (Lifetime) No 05/16/2024 11:22 AM CDT Alice Verdin RN Active documented as of this encounter Plan of Treatment Not on file documented as of this encounter Results * (ABNORMAL) URINE BACTERIA CULTURE (05/13/2024 11:15 AM CDT) SPEC DESCRIPTION URINE CLEAN CATCH 05/13/2024 11:09 AM CDT [facility] SPECIAL REQUESTS NO SPECIAL REQUEST 05/13/2024 11:09 AM CDT [facility] CULTURE RESULT 50,000-100, 000 COL/ML ENTEROCOCCU S SPECIES (A) 05/15/2024 8:45 AM CDT [facility] URINE SPECIMEN OBTAINED BY CLEAN CATCH PROCEDURE / Unknown 05/13/2024 11:15 AM CDT 05/13/2024 11:39 AM CDT Narrative Organism Antibiotic Method Susceptibility Enterococcus species AMPICILLIN COCO (VITEK) <=2: Sensitive Enterococcus species NITROFURANTOIN COCO (VITEK) <=16: Sensitive Enterococcus species GENT. SYNERGY SCREEN COCO (VITEK) Sensitive Enterococcus species PENICILLIN G COCO (VITEK) 2: Sensitive Dorota Mobley MD MICROBIOLOGY - GENERAL ORDERABLES Final Result [facility] [address] [place] [address], [place] [phone] * (ABNORMAL) URINALYSIS (05/13/2024 11:15 AM CDT) SPECIMEN TYPE URINE CLEAN CATCH 05/13/2024 11:09 AM CDT [facility] COLOR (U) LIGHT YELLOW 05/13/2024 12:06 PM CDT [facility] TRANSPARENCY CLEAR 05/13/2024 12:06 PM [facility] SPECIFIC GRAVITY (U) 1.018 1.001 - 1.030 05/13/2024 12:06 PM [facility] U PH 6.0 5.0 - 9.0 05/13/2024 12:06 PM [facility] LEUKOCYTES (U) 75(A) NEGATIVE 05/13/2024 12:06 PM T [facility] NITRITES NEGATIVE NEGATIVE 05/13/2024 12:06 PM [facility] PROTEIN RANDOM (U) NEGATIVE <30 MG/DL 05/13/2024 12:06 PM [facility] GLUCOSE (U) NORMAL NORMAL MG/DL 05/13/2024 12:06 PM [facility] KETONES MG/DL (U) NEGATIVE NEGATIVE MG/DL 05/13/2024 12:06 PM [facility] UROBILINOGEN NORMAL NORMAL MG/DL 05/13/2024 12:06 PM [facility] BILIRUBIN (U) NEGATIVE NEGATIVE MG/DL 05/13/2024 12:06 PM [facility] BLOOD (U) NEGATIVE NEGATIVE 05/13/2024 12:06 PM T [facility] MUCUS RARE /LPF 05/13/2024 12:06 PM [facility] WBC/HPF 13(H) <6 /HPF 05/13/2024 12:06 PM [facility] RBC/HPF 1 <6 /HPF 05/13/2024 12:06 PM [facility] URINE SPECIMEN OBTAINED BY CLEAN CATCH PROCEDURE / Unknown 05/13/2024 11:15 AM CDT us Dorota Mobley MD URINE ORDERABLES Final Result [facility] [address] [place] [address], [place] [phone] * ECG 12-Lead (05/10/2024 12:52 PM CDT) 05/10/2024 12:5 2 PM CDT Narrative [facility] - 05/11/2024 1:08 AM CDT [address] Test Date: 2024-05-10 Pat Name: ANDER ADDISON Department: 40 Room: Gender: Male Salon Assistant: ARI : 1965 Requested By: DOROTA MOBLEY Order Number: [id number] Reading MD: Adriane Han Measurements Intervals [place] Rate: 62 P: 38 TX: 163 QRS: 4 QRSD: 106 T: 7 QT: 421 QTc: 429 Interpretive Statements SINUS RHYTHM No previous ECG available for comparison Procedure Note Adriane Han MD - 05/11/[address] Test Date: 2024-05-10 Pat Name: ANDER ADDISON Department: 40 Room: Gender: Male Salon Assistant: CDNG : 1965 Requested By: DOROTA MOBLEY Order Number: [id number] Reading CARMEN Han Measurements Intervals [place] Rate: 62 P: 38 TX: 163 QRS: 4 QRSD: 106 T: 7 QT: 421 QTc: 429 Interpretive Statements SINUS RHYTHM No previous ECG available for comparison us Dorota Mobley MD ECG ORDERABLES Final R esult [facility] * XR CHEST PA+LAT (05/10/2024 12:51 PM CDT) Anatomical Region Laterality Modality Chest Radiographic Teresita ging 05/10/2024 12:4 8 PM CDT Impressions 05/10/2024 12:49 PM CDT IMPRESSION: Negative chest Ordered By: DOROTA MOBLEY Interpreted By: Dhiraj Oliva MD, 05/10/2024 12:48 PM Narrative 05/10/2024 12:49 PM CDT [place] [id number] 2 VIEWS OF THE CHEST Clinical history: Kidney stone Comparison: None 2 views of the chest demonstrate the cardiac silhouette to be normal in size and appearance. The pulmonary vessels appear normal. The Lungs are clear. No consolidations or effusions are seen. Procedure Note Dhiraj Oliva MD - 05/10/2024 [place] [address] 2 VIEWS OF THE CHEST Clinical history: Kidney stone Comparison: None 2 views of the chest demonstrate the cardiac silhouette to be normal insize and appearance. The pulmonary vessels appear normal. The Lungs areclear. No consolidations or effusions are seen. IMPRESSION: Negative chest Ordered By: DROOTA MOBLEY Interpreted By: hDiraj Oliva MD, 05/10/2024 12:48 PM us Dorota Mobley MD GENERAL IMAGING Final R esult * (ABNORMAL) BASIC METABOLIC PANEL (05/10/2024 12:17 PM CDT) Pathologist [facility] GLUCOSE 109(H) 70 - 99 MG/DL 05/10/2024 1:35 PM [facility] BUN 14 7 - 18 MG/DL 05/10/2024 1:35 PM [facility] CREATININE S/P/B 1.21 0.7 - 1.3 MG/DL 05/10/2024 1:35 PM T [facility] SODIUM S/P/B 139 136 - 145 MMOL/L 05/10/2024 1:35 PM [facility] POTASSIUM S/P/B 3.4(L) 3.5 - 5.1 MMOL/L 05/10/2024 1:35 PM [facility] CHLORIDE S/P/B 104 97 - 115 MMOL/L 05/10/2024 1:35 PM [facility] CO2 28.8 21 - 32 MMOL/L 05/10/2024 1:35 PM [facility] CALCIUM S/P/B 9.2 8.5 - 10.1 MG/DL 05/10/2024 1:35 PM [facility] ANION GAP 6.2 2 - 10 MMOL/L 05/10/2024 1:35 PM [facility] BUN CREATININE RATIO 11.6 6 - 26 05/10/2024 1:35 PM [facility] GFR ESTIMATE 69(L) >90 ML/MIN/1.7 3 M2 05/10/2024 1:35 PM [facility] Comment: NOTE: eGFR is not calculated for patients <18 years of age or gender unknown. This is an estimated GFR calculation using the new CKD EPI creatinine equation without race and so does not require a correction factor for race. This estimated GFR should not be used for calculating drug doses. 05/10/2024 12:1 7 PM CDT us Dorota Mobley MD LABORATORY Final R esult [facility] [address] [place] [address], [place] [phone] * (ABNORMAL) CBC W/DIFF AUTOMATED (05/10/2024 12:17 PM CDT) [facility] WBC 7.91 4.5 - 11.0 x10'3/uL 05/10/2024 1:16 PM CDT [facility] RBC 5.02 4.70 - 6.10 x10'6/uL 05/10/2024 1:16 PM CDT [facility] HGB 15.1 14.0 - 18.0 G/DL 05/10/2024 1:16 PM CDT [facility] HCT 44.9 43.0 - 54.0 % 05/10/2024 1:16 PM CDT [facility] MCV 89.4 80.0 - 94.0 FL 05/10/2024 1:16 PM CDT [facility] MCH 30.1 27.0 - 31.0 PG 05/10/2024 1:16 PM CDT [facility] MCHC 33.6 32.0 - 36.0 G/DL 05/10/2024 1:16 PM CDT [facility] RDW 12.4 11.5 - 14.5 % 05/10/2024 1:16 PM CDT [facility] PLT 355 130 - 400 x10'3/uL 05/10/2024 1:16 PM CDT [facility] MPV 8.2(L) 9.3 - 12.2 FL 05/10/2024 1:16 PM CDT [facility] DIFFERENTIAL TYPE AUTOMATED DIFFERENTIAL 05/10/2024 1:16 PM CDT [facility] NEUTROPHILS % 67.5 % 05/10/2024 1:16 PM CDT [facility] LYMPHOCYTES % 22.5 % 05/10/2024 1:16 PM CDT [facility] MONOCYTES % 6.6 % 05/10/2024 1:16 PM CDT [facility] EOSINOPHILS 2.1 % 05/10/2024 1:16 PM CDT [facility] BASOPHILS 0.4 % 05/10/2024 1:16 PM CDT [facility] IMMATURE GRANS % 0.9 % 05/10/20 1:16 PM CDT [facility] ABS. NEUTROPHILS 5.34 1.80 - 7.70 x10'3/uL 05/10/2024 1:16 PM CDT [facility] ABS. LYMPHOCYTES 1.78 1.00 - 4.80 x10'3/uL 05/10/2024 1:16 PM CDT [facility] ABS. MONOCYTES 0.52 0.30 - 0.82 x10'3/uL 05/10/2024 1:16 PM CDT [facility] ABS. EOSINOPHILS 0.17 0.04 - 0.54 x10'3/uL 05/10/2024 1:16 PM CDT [facility] ABS. BASOPHILS 0.03 0.01 - 0.08 x10'3/uL 05/10/2024 1:16 PM CDT [facility] ABS. IMMATURE GRANULOCYTES 0.07 0.00 - 0.49 x10'3/uL 05/10/2024 1:16 PM CDT [facility] 05/10/2024 12:1 7 PM CDT us Dorota Mobley MD LABORATORY Final R esult [facility] [address] [place] [address], [place] [phone] documented in this encounter Visit Diagnoses Diagnosis Bladder stone Other calculus in bladder Nephrolithiasis Calculus of kidney History of kidney cancer Personal history of malignant neoplasm of kidney Bladder stone- Primary Other calculus in bladder Nephrolithiasis Calculus of kidney History of kidney cancer Personal history of malignant neoplasm of kidney documented in this encounter Care Teams Health Information Manager Relationship Specialty Start Date End Date Faraz Castro MD [address] [place] [address] PCP - General 05/13/24 [place] [id number] [address] [facility] [address] [place] [address] INTERNAL MEDICINE 05/08/24 Michael Wright MD [address] [facility] [address] [place] [address] PULMONARY DISEASE 05/08/24 documented as of this encounter
--- OUTSIDE RECORDS SUMMARY | 2025-06-24 13:24 | XMS_ITS | Clinical Summary ---
Author Organization [facility] Address [facility] [place] [address] Care Team Providers Care Dike Supervisor Name Role Phone Faraz Castro MD Primary Care Provider [phone] Lee Vuong MD Unavailable [phone] Isma Mccrary MD Unavailable Michael Wright MD Unavailable [phone] Allergies Active Allergy Reactions Criticality Noted Date Comments Adhesive Swelling,Rash Medium 06/20/2024 SKIN GLUE Bacitracin Other (See comments) Medium 05/14/2013 Bacitracin-Polymyxin B Swelling Medium 01/09/2018 Latex Redness Low 01/09/2018 Medications cetirizine (ZyrTEC) 10 mg tabletIndicati ons:Chronic Idiopathic Urticaria Take 1 tablet (10 mg total) by mouth daily as needed Active hydroCHLOROthi azide (HYDRODIURIL) 25 mg tablet Take 1 tablet (25 mg total) by mouth daily 9 Active acetaminophen 500 mg capsuleIndicat ions:Pain Take 2 capsules (1,000 mg total) by mouth every 6 (six) hours 4 Active colchicine (COLCRYS) 0.6 mg tabletIndicati ons:acute gouty arthritis Take 1 tablet (0.6 mg total) by mouth 2 (two) times a day 20 tablet 4 Active ezetimibe (ZETIA) 10 mg tablet TAKE 1 TABLET DAILY 90 tablet 3 4 Active metoprolol XL (TOPROL-XL) 50 mg extended release tablet TAKE 1 TABLET NIGHTLY 90 tablet 3 5 Active lisinopriL (PRINIVIL,ZEST RIL) 5 mg tablet TAKE 1 TABLET DAILY 90 tablet 3 5 Active cephalexin (KEFLEX) 500 mg capsule Take 1 capsule (500 mg total) by mouth 3 (three) times a day 30 capsule 5 Active Xarelto 10 mg tabletIndicati ons:History of pulmonary embolism TAKE 1 TABLET DAILY 90 tablet 3 5 Active ALPRAZolam (XANAX) 0.5 mg tablet TAKE 1 TO 2 TABLETS AT BEDTIME NEEDED FOR INSOMNIA 60 tablet 5 Active amLODIPine (NORVASC) 10 mg tablet TAKE 1 TABLET DAILY 90 tablet 3 5 Active amLODIPine (NORVASC) 10 mg tablet TAKE 1 TABLET DAILY 30 tablet 11 4 025 Discontinued ALPRAZolam (XANAX) 0.5 mg tablet TAKE 1 TO 2 TABLETS AT BEDTIME NEEDED FOR INSOMNIA 60 tablet 5 025 Discontinued methylPREDNISo lone (MEDROL DOSEPACK) 4 mg DosepackIndica tions:gout flare up Take as directed on package. 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 Tolerating prophylactic dose of DOAC well Recs: 1) Continue DOAC - xarelto 10 mg a day 2) Precautions with DOAC discussed 3) Stay as active as able 4) Stay uptodate with health maintenance/vaccinations Assessment & Plan (03/02/2023 10:23 AM CDT): 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 10/11/2022 Assessment & Plan (07/31/2024 3:52 PM DIE OUT WORKER): stable History of pulmonary embolism 10/11/2022 Assessment & Plan (02/05/2025 3:48 PM CDT): Continue xarelto History of colon cancer 10/11/2022 Liver lesion, left lobe 10/11/2022 Right leg DVT 10/11/2022 Lumbar herniated disc 09/07/2022 Assessment & Plan (02/05/2025 3:48 PM CDT): stable Hyperlipidemia 10/04/2021 Assessment & Plan (02/05/2025 3:48 PM CDT): stable Assessment & Plan (10/29/2024 3:40 PM CDT): stable Assessment & Plan (07/31/2024 3:52 PM DIE OUT WORKER): stable Assessment & Plan (10/04/2021 10:14 AM DIE OUT WORKER): Will add Vascepa to Zetia for improved control of TRG's Did not tolerate statin previously Diet and activity Nephrolithiasis 10/04/2021 Assessment & Plan (10/04/2021 10:14 AM DIE OUT WORKER): Uro referral Prostate cancer screening 10/04/2021 Assessment & Plan (10/29/2024 3:40 PM CDT): stable Assessment & Plan (10/04/2021 10:15 AM DIE OUT WORKER): Labs Essential hypertension 10/04/2021 Assessment & Plan (10/29/2024 3:40 PM CDT): Bp at target, continue medication for target directed therapy Assessment & Plan (10/04/2021 10:16 AM DIE OUT WORKER): At goal Continue lisinopril, amlodipine, metoprolol Follows with Cardiology ASCVD (arteriosclerotic cardiovascular disease) 10/04/2021 Personal history of renal cell cancer 03/14/2018 Overview (10/04/2021): S/P partial L nephrectomy in 2018 Resolved Problems Problem Noted Date Diagnosed Date Resolved Date History of IL (myocardial infarction) 10/04/2021 10/11/2022 Left renal mass 01/25/2018 10/04/2021 Encounters Date Type Department Care Team Description 06/19/2025 10:15 AM DIE OUT WORKER Office Visit [facility] [address] [facility] [address] [place] [address] Michael Wright MD PTE (pulmonary thromboembolism) (Primary Dx) 06/12/2025 Telephone [facility] [address] [place] [address] [place] [id number] Faraz Castro MD Gout 03/31/2025 Telephone [facility] [facility] [address] [place] [address] Faraz Castro MD Gout from Last 3 Months Immunizations Immunization Administration Dates Next Due Influenza, Quadrivalent, Brittany l Culture-based MDCK, Preservative Free, Antibiotic Free, Intramuscular 06/23/2017 Influenza, Quadrivalent, Spl it, Preservative Free, Intramuscular 05/27/2015 Influenza, Trivalent, Preservative Free, Intramu scular 08/18/2016 Tdap 03/12/2013 Surgical History Surgery Date Site/Laterality Comments BACK SURGERY Back Surgery - (Added by TW Conv) COLON SURGERY LAPAROSCOPIC COLON RESECTION 08/14/2006 - 08/13/2007 LITHOTRIPSY 08/14/2015 - 08/13/2016 INSERT VENA CAVA FILTER 08/14/2008 - 08/13/2009 IVC FILTER RETRIEVAL 08/14/2008 - 08/13/2009 INSERT VENA CAVA FILTER 03/04/2024 N/A PARTIAL NEPHRECTOMY Left REMOVE VENA CAVA FILTER 06/19/2024 N/A Medical History Medical History Date Comments Personal history of other di seases of the circulatory system History of hypertension - (A dded by TW Conv) History of chemotherapy 09/2007 for colo n cncer Colon cancer (HCC) 2006 Renal cell cancer (HCC) 2017 Heart murmur childhood Pulmonary embolus (HCC) felt to be secondary to chemo-2008 Kidney stone Family History Medical History Relation Name Comments Lung cancer Father Family history of lung cancer - (Added by TW Conv) Heart attack Mother Family history of myocardial infarction - (Added by TW Conv) Clotting disorder Neg Hx Relation Name Status Comments Father Mother Social History Tobacco Use Types Packs/Day Years Used Date Smoking Tobacco: Never Smokeless Tobacco: Never Tobacco Cessation:Counseling Given: Not Answered Alcohol Use Standard Drinks/Week Comments Defer 0 (1 standard drink = 0.6 oz pur e alcohol) very rare [facility] Utilities Answer Date Recorded In the past 12 months has [employer], gas, oil, or water [email or web address] threatened to shut off services in your home? No 03/07/2024 Social Connection and Isolation Panel Answer Date Recorded In a typical week, how many times do you talk on the phone with family, friends, or neighbors? More than three times a week 03/07/2024 How often do you get togethe r with friends or relatives? More than three times a week 03/07/2024 How often do you attend chur ch or evangelical services? Never 03/07/2024 Do you belong to any clubs o r organizations such as sabianism groups, unions, fraternal or athletic groups, or school groups? Yes 03/07/2024 How often do you attend meet ings of the clubs or organizations you belong to? More than 4 times per year 03/07/2024 Are you , , di vorced, , never , or living with a partner? 03/07/2024 AUDIT-C Answer Date Recorded Q1: How often do you have a drink containing alcohol? Never 03/06/2024 Q2: How many drinks containi ng alcohol do you have on a typical day when you are drinking? Patient does not drink Q3: How often do you have si x or more drinks on one occasion? Never 03/06/2024 Overall Financial Resource Strain (CARDIA) Answe r Date Recorded How hard is it for you to pa y for the very basics like food, housing, medical care, and heating? Not very hard 03/07/2024 Hunger Vital Sign Answer Date Recorded Within the past 12 months, y ou worried that your food would run out before you got the money to buy more. Never true 03/07/20 24 Within the past 12 months, t he food you bought just didn't last and you didn't have money to get more. Never true 03/07/2024 PRAPARE - Transportation Answer Date Re corded In the past 12 months, has l ack of transportation kept you from medical appointments or from getting medications? No 02/12 In the past 12 months, has l ack of transportation kept you from meetings, work, or from getting things needed for daily living? No 03/07/2024 Housing Stability Vital Sign Answer Baron e Recorded In the last 12 months, was t here a time when you were not able to pay the mortgage or rent on time? No 03/07/2024 In the past 12 months, how m any times have you moved where you were living? 1 03/07/2024 At any time in the past 12 m [facility], were you homeless or living in a usp (including now)? No 03/07/2024 Personal Safety Answer Date Recorded Have you ever been in or are you currently in a harmful physical or emotional relationship or is someone making you feel afraid or unsafe? Denies 06/19/2024 Sex and Gender Information Value Date Recorded Sex Assigned at Not on file Legal Sex Male 7:02 PM DIE OUT WORKER Gender Identity Male 07/27/2023 1:07 PM DIE OUT WORKER Sexual Orientation Not on file Last Filed Vital Signs Vital Sign Reading Time Taken Comments Blood Pressure 122/77 02/05/2025 3:23 PM CDT Pulse 66 02/05/2025 3:23 PM CDT Temperature 36.5 C (97.7 F) 06/19/2024 9:45 AM DIE OUT WORKER Respiratory Rate 18 06/19/2024 10:47 AM DIE OUT WORKER Oxygen Saturation 95% 02/05/2025 3:23 PM CDT Inhaled Oxygen Concentration - - Weight 126.6 kg (279 lb) 02/05/2025 3:23 PM CDT Height 172.7 cm (5' 8) 02/05/2025 3:23 PM CDT Body Mass Index 42.42 02/05/2025 3:23 PM CDT Plan of Treatment Scheduled Procedures Name Priority Associated Diagnoses Date/Ti me COLONOSCOPY Open Access Encounter for screening colonoscopy Health Maintenance Due Date Last Done Comments Colon Cancer Screening-Colonoscopy 1965 Depression Screening 1965 Hepatitis C Screening 1965 Hepatitis B Screening 01/26/1982 Regular Well Visit/Exam 18-64 01/26/1982 Pneumococcal vaccine <65 (1 of 2 - PCV) 01/26/1983 Zoster Vaccine (1 of 2) 01/26/2014 DTaP/Tdap/Td Vaccine (2 - Td or Tdap) 03/12/2023 Prostate Cancer Screening-PSA 10/04/2023 10/04/2021 Influenza Vaccine (#1) 2025 7, 08/18/2016, 05/27/2015 Medical Devices Implanted Type Area Corporate Travel Counselor Device Identifier Shelf Expiration Date Model / Serial / Lot [employer] Inc Celect Navalign Delivery Uniset Filter Embolization [place] [id number] - S0 - [id number] Implanted:Qty: 1 on 10/11/2022 by Isma Mccrary MD at [facility] IVC Filter N/A: Inferior Vena Cava [employer] Inc 09/02/2025 [id number] / 0 / [id number] Bell V[employer] Device Clsr Perclose Prostyle Sut-Mediatd Closure-Repair Sys [id number] - S0 - [id number] Implanted:Qty: 1 on 10/11/2022 by Isma Mccrary MD at [facility] Vascular Closure Device Right: Femoral Vein [employer] 07/13/2024 [id number] / 0 / [id number] [place] Peripheral Vascular [place] Jugular Venal Cava Filter [id number] - [id number] Implanted:Qty: 1 on 03/04/2024 at [facility] Peripheral Vascular 01/11/2027 [id number] / / [id number] Orthofix Spinal Implants Firebird 5.5mm 100mm Anodize Straight Abraham Spinal Titanium - [id number] Implanted:Qty: 2 on 03/06/2024 by Lee Vuong MD at [facility] N/A: Spine Lumbar Orthofix Spinal Implants / / [employer] Inc Osteogen Spf 60fr Implantable Fusion Spine Mini Stimulator Bone 10-1335m - [id number] - [id number] Implanted:Qty: 1 on 03/06/2024 by Lee Vuong MD at [facility] N/A: Spine Lumbar [employer] Inc [id number] 06/14/2024 10-1335M / [id number] / New Age Medical Graft Bone Magnetos 10cc 1-2mm Granules In Moldable Putty 703-038-[id number] - [id number] Implanted:Qty: 1 on 03/06/2024 by Lee Vuong MD at [facility] N/A: Spine Lumbar [employer] [id number] 01/13/2028 [id number] / / [id number] Orthofix Spinal Implants Screw Spinal Set Pedicle Solid Jolynn 1cc - [id number] Implanted:Qty: 8 on 03/06/2024 by Lee Vuong MD at [facility] N/A: Back Orthofix Spinal Implants / / Orthofix Spinal Implants Screw Spinal Pedicle Multiaxial Top Loading Self Tapping Threaded Solid Firebird Titanium 36-2100 - [id number] Implanted:Qty: 8 on 03/06/2024 by Lee Vuong MD at [facility] N/A: Back Orthofix Spinal Implants [id number] / / Orthofix Spinal Implants Screw Bone 7.5mm 50mm Janus Spine Cortex Cannltd St Self 36-3750 - [id number] Implanted:Qty: 4 on 03/06/2024 by Lee Vuong MD at [facility] N/A: Spine Lumbar Orthofix Spinal Implants [id number] / / Orthofix Spinal Implants Janus 6.5mm 45mm Cannulated Self Tap Self Drill Modular Spine 36-3645 - [id number] Implanted:Qty: 2 on 03/06/2024 by Lee Vuong MD at [facility] N/A: Spine Lumbar Orthofix Spinal Implants [id number] / / Orthofix Spinal Implants Screw Bone 6.5mm 50mm Janus Spine Cortex Cannltd St Self 36-3650 - [id number] Implanted:Qty: 2 on 03/06/2024 by Lee Vuong MD at [facility] N/A: Spine Lumbar Orthofix Spinal Implants [id number] / / Procedures Procedure Name Priority Date/Time Associated Diagnosis Comments PSA SCREEN Routine 10/04/2021 10:26 AM DIE OUT WORKER Prostate cancer screening from Last 3 Months or Most Recently Relevant to Health Maintenance Results * PSA screen (10/04/2021 10:26 AM DIE OUT WORKER) PSA 3.7 0.0 - 4.0 ng/mL [facility] - 01 Comment: Taylor ECLIA methodology. According to the [place] [employer], Serum PSA should decrease and remain at undetectable levels after radical prostatectomy. The AUA defines biochemical recurrence as an initial PSA value 0.2 ng/mL or greater followed by a subsequent confirmatory PSA value 0.2 ng/mL or greater. Values obtained with different assay methods or kits cannot be used interchangeably. Results cannot be interpreted as absolute evidence of the presence or absence of malignant disease. Blood specimen (specimen) 10/04/2021 10:26 AM DIE OUT WORKER 10/04/2021 Narrative [facility] - 10/05/2021 8:14 AM DIE OUT WORKER Performed at: 01 - [facility] [id number] Carpentry Supervisor: Omar Loera PhD, Phone: [phone] us Clair Lopez CUTTING ROOM SUPERVISOR LAB BLOOD ORDERABLES Fin al Result [facility] - 01 from Last 3 Months or Most Recently Relevant to Health Maintenance Insurance [employer] OOS [employer] [facility] Advance Directives For more information, please contact: [phone] * Full Code (Latest Code Status on File) Date Activated Date Inactivated Comments 03/06/2024 5:24 PM 03/08/2024 7:31 PM * Full Code Date Activated Date Inactivated Comments 10/11/2022 1:44 PM 10/14/2022 5:36 PM * Full Code Date Activated Date Inactivated Comments 09/07/2022 10:41 AM 09/08/2022 6:38 PM * Full Code Date Activated Date Inactivated Comments 01/24/2018 9:16 PM 01/25/2018 11:01 PM Care Teams Dike Supervisor Relationship Specialty Start Date End Date Faraz Castro MD PCP - General Internal Medicine 02/27/18 Lee Vuong MD Consulting Physician Orthopedic Surgery 09/08/22 Isma Mccrary MD [address] [place] [address] Consulting Physician Cardiovascular Disease 10/14/22 Michael Wright MD [address] [place], [place] [id number] Consulting Physician Pulmonary Disease 10/14/22
--- OUTSIDE RECORDS SUMMARY | 2025-06-24 13:24 | XMS_ITS | Clinical Summary ---
Author Organization [facility] Address [facility] [place] [address] Care Team Providers Care Grain Combiner Name Role Phone Joya Bernal MD Unavailable [phone] Michael Wright MD Unavailable [phone] Faraz Castro MD Primary Care Provider [phone] Allergies Active Allergy Reactions Criticality Noted Date Comments Bacitracin Swelling,Other (see comment) Medium 05/14/2013 Around eye Bacitracin-Polymyxin B Swelling Medium 01/09/2018 Latex Rash,Redness Low 01/09/2018 Latex tape Tape Rash Low 05/08/2024 Paper tape okay Recent surgery where dermabond caused rash as well Medications ALPRAZolam (XANAX) 0.25 MG tablet Take 1 tablet (0.25 mg total) by mouth 3 (three) times daily as needed for Anxiety. 02/12/2024 Active diazePAM (VALIUM) 5 MG tablet Take 1 tablet (5 mg total) by mouth every 6 (six) hours as needed for Anxiety. 03/08/2024 Active HYDROcodone-oscar taminophen (NORCO) 5-325 MG tablet Take 1-2 tablets by mouth every 6 (six) hours as needed for Pain. 02/29/2024 Active ezetimibe (ZETIA) 10 MG tablet Take 1 tablet (10 mg total) by mouth daily. Active metoprolol succinate ER (TOPROL-XL) 50 MG 24 hr tablet Take by mouth daily. Active lisinopril (PRINIVIL) 5 MG tablet Take 1 tablet (5 mg total) by mouth daily. Active amLODIPine (NORVASC) 10 MG tablet Take 1 tablet (10 mg total) by mouth daily. Active rivaroxaban (XARELTO) 20 MG Tab tablet Take 1 tablet (20 mg total) by mouth daily with supper. Take with food Active cetirizine (ZYRTEC) 10 MG tablet Take 1 tablet (10 mg total) by mouth daily. Active nitrofurantoin (MACRODANTIN) 100 MG capsule Take 1 capsule (100 mg total) by mouth 2 (two) times a day. 05/15/2024 Active hydroCHLOROthia zide (HYDRODIURIL) 25 MG tablet Take 1 tablet (25 mg total) by mouth every morning. 03/10/2024 Active Active Problems No known active problems Social History Tobacco Use Types Packs/Day Years Used Date Smoking Tobacco: Never Smokeless Tobacco: Never Tobacco Cessation:Counseling Given: Not Answered Alcohol Use Standard Drinks/Week Comments Not Currently 0 (1 standard drink = 0.6 oz pur e alcohol) Sex and Gender Information Value Date Recorded Sex Assigned at Not on file Legal Sex Male 1:42 PM CDT Gender Identity Not on file Sexual Orientation Not on file Last Filed Vital Signs Vital Sign Reading Time Taken Comments Blood Pressure 134/87 05/16/2024 2:55 PM CDT Pulse 63 05/16/2024 2:55 PM CDT Temperature 36.6 C (97.9 F) 05/16/2024 2:55 PM CDT Respiratory Rate 18 05/16/2024 2:55 PM CDT Oxygen Saturation 97% 05/16/2024 2:55 PM CDT Inhaled Oxygen Concentration - - Weight 122.7 kg (270 lb 8.1 oz) 024 11:00 AM CDT Height 172.7 cm (5' 8) 05/08/2024 11:2 5 AM CDT Body Mass Index 41.13 05/08/2024 11:25 AM CDT Plan of Treatment Health Maintenance Due Date Last Done Comments Colorectal Cancer Screening Colonoscopy (10 Years) 1965 Annual Physical 01/26/1967 Hepatitis C 01/26/1982 Pneumococcal Vaccine: 50+ Years (1 of 1 - PCV) 01/26/2014 Zoster Vaccines (1 of 2) 01/26/2014 DTaP, Tdap and Td Vaccines ( 2 - Td or Tdap) 03/12/2023 03/12/2013 RSV Immunization or 60+ Years (1 - Risk 60-74 years 1-dose series) 2024 COVID-19 Vaccine ( - 2024-2 6 season) 2025 Influenza Adult (#1) 2025 06/23/2017, 08/18/2016, 05/27/2015 Hepatitis A Vaccines Aged Out No long er eligible based on patient's age to complete this topic Meningococcal B Vaccine Aged Out No l onger eligible based on patient's age to complete this topic Meningococcal Vaccine Aged Out No marc osiel eligible based on patient's age to complete this topic RSV Immunizations Under 20 Months Aged Out No longer eligible b ased on patient's age to complete this topic Insurance Care Teams Grain Combiner Relationship Specialty Start Date End Date Faraz Castro MD [employer] [address] [place] [address] [address], [place] [address] PCP - General 05/13/24 [place] [id number] [address] [facility] [address] [place] [address] INTERNAL MEDICINE 05/08/24 Michael Wright MD [address] [facility] [address], [place] [address] PULMONARY DISEASE 05/08/24
== END 2025-06-24 13:17 | disposition home or self-care (01) ==
LOC: ANHIMG 13:19
PROVIDERS: PCP Internal Medicine; Visit Provider Urology
DX: N20.0 Calculus of kidney (principal)
CPT/HCPCS: 74018